=== PATIENT | female | born 1990 | race Two or more races ===

== ENCOUNTER → 2020-10-24 11:09 | Outpatient (CLI) | payer OTHER | END | disposition home or self-care (01) | LOC: PPH VACUNA 11:09 | DX: Z23 Encounter for immunization (principal) ==

== ENCOUNTER 2024-06-05 16:14 | Emergency (ER) | payer OTHER ==
[~2024-06-05] VITALS: Ht 152.4 cm; Wt 74.4 kg
[~2024-06-05 16:14] MED LIST: IMURAN50 MG; PEPCID AC20 MG
== END 2024-06-05 17:58 | disposition home or self-care (01) ==
LOC: ER 16:16
DX: S81.811A Laceration without foreign body, right lower leg, initial encounter (principal); X58.XXXA Exposure to other specified factors, initial encounter; Y93.89 Activity, other specified; Y92.89 Other specified places as the place of occurrence of the external cause; Y99.8 Other external cause status

== ENCOUNTER 2024-06-10 13:11 | Emergency (ER) | payer OTHER ==
[~2024-06-10] VITALS: Ht 152.4 cm; Wt 76.2 kg
[2024-06-10] MEDS ORDERED: CEFTRIAXONE SODIUM 1,000 MG VIAL IV ONE (16:30)
[2024-06-10] MEDS ORDERED: ACETAMINOPHEN 500 MG GEL..CAP PO ONE (16:30)
[2024-06-10 17:02] LABS: HEMATOCRIT 43.4 % (36.0-45.00); HEMOGLOBIN 14.5 g/dL (12.0-15.00); MEAN CELL VOLUME 85.3 fL (80.00-100.00); MEAN CORPUSCULAR HEMOGLOBIN 28.6 pg (27.00-32.0); MEAN CORPUSCULAR HGB CONC 33.5 g/dl (32.0-36.0); PLATELET COUNT 277 K/uL (150-450); RED BLOOD COUNT 5.09 M/uL (4.00-6.00); RED CELL DISTRIBUTION WIDTH 12.7 % (11.5-14.5)
[2024-06-10] MEDS ORDERED: AMOX-CLAV 875-1 EAC1 PO (19:18)
== END 2024-06-10 19:43 | disposition home or self-care (01) ==
LOC: ER 13:13
PROVIDERS: Nurse Practitioner Family
DX: S80.811A Abrasion, right lower leg, initial encounter (principal); W19.XXXA Unspecified fall, initial encounter; Y93.89 Activity, other specified; Y92.89 Other specified places as the place of occurrence of the external cause; Y99.8 Other external cause status; S00.93XA Contusion of unspecified part of head, initial encounter; L08.9 Local infection of the skin and subcutaneous tissue, unspecified; Z88.6 Allergy status to analgesic agent

== ENCOUNTER 2024-10-20 11:14 | Emergency (ER) | payer OTHER ==
[~2024-10-20] VITALS: Ht 152.4 cm; Wt 73.9 kg
[~2024-10-20 11:14] MED LIST changes: +AMOX-CLAV 875-1 EAC1 PO
[2024-10-20] MEDS ORDERED: MORPHINE SULFATE 2 MG/ML SYRINGE IV STA (12:19)
[2024-10-20] MEDS ORDERED: PROMETHAZINE HCL 50 MG/ML AMPUL IM STA (12:20)
[2024-10-20] MEDS ORDERED: RINGERS SOLUTION,LACTATED 1,000 ML IV STA (12:24)
[2024-10-20] MEDS ORDERED: PROMETHAZINE HCL 25 MG/ML AMPUL ONE (12:26)
[2024-10-20 12:41] LABS: HEMATOCRIT 43.1 % (36.0-45.00); HEMOGLOBIN 14.7 g/dL (12.0-15.00); MEAN CELL VOLUME 84.6 fL (80.00-100.00); MEAN CORPUSCULAR HEMOGLOBIN 28.8 pg (27.00-32.0); MEAN CORPUSCULAR HGB CONC 34.1 g/dl (32.0-36.0); PLATELET COUNT 270 K/uL (150-450); RED CELL DISTRIBUTION WIDTH 12.7 % (11.5-14.5)
[2024-10-20 13:04] LABS: ALBUMIN 3.7 gm/dL (3.4-5.0); BILIRUBIN TOTAL 0.93 mg/dL (0.3-1.2); BILIRUBIN,CONJUGATED 0.25 mg/dL (0.0-0.2); BILIRUBIN,UNCONJUGATED 0.68 mg/dL (0.0-0.6); CREATININE SERUM 0.79 mg/dL (0.55-1.02); GFR 82.35; POTASSIUM 3.9 mEq/L (3.5-5.1)
[2024-10-20 13:20] LABS: URINE APPEARANCE Cloudy; URINE BILIRRUBIN Negative (NEGATIVE); URINE BLOOD Negative; URINE COLOR Yellow; URINE GLUCOSE Negative (NEGATIVE); URINE LEUKOCYTE Trace; URINE NITRATE Positive; URINE PROTEIN Negative (NEGATIVE)
[2024-10-20 13:21] LABS: URINE EPITHELIAL CELLS 86.5 uL (0.0-38.8); URINE RBC 3.9 uL (0.0-20.8); URINE WBC 52.3 uL (0.0-23.2)
[2024-10-20 13:29] LABS: URINE BACTERIA > 9821.5 uL (0.0-1933); URINE KETONE 40 (NEGATIVE)
== END 2024-10-20 17:20 | disposition home or self-care (01) ==
LOC: ER 11:15
PROVIDERS: General Practice
DX: R10.9 Unspecified abdominal pain (principal); Z88.6 Allergy status to analgesic agent; K50.90 Crohn's disease, unspecified, without complications; K57.30 Diverticulosis of large intestine without perforation or abscess without bleeding

== ENCOUNTER 2024-12-05 09:41 | Emergency (ER) | payer OTHER ==
[~2024-12-05] VITALS: Ht 154.9 cm; Wt 72.6 kg
[2024-12-05 12:49] LABS: COVID-19 AG NEGATIVE (NEGATIVE); INFLUENZA A AG NEGATIVE (NEGATIVE)
[2024-12-05 12:54] LABS: HEMATOCRIT 44.7 % (34.1-44.9); MEAN CORPUSCULAR HEMOGLOBIN 27.9 pg (25.6-32.2); RED BLOOD COUNT 5.37 M/uL (3.93-5.22); RED CELL DISTRIBUTION WIDTH 12.6 % (11.6-14.4)
[2024-12-05 12:55] LABS: BASO % 0.8 % (0.1-1.2); EOS # 0.07 (0.04-0.54); EOS % 0.7 % (0.7-7.0); LYMPH # 1.93 (1.18-3.74); LYMPH % 19.9 % (19.3-53.1); MONO # 1.27 (0.24-0.82); MONO % 13.1 % (4.7-12.5); NEUT # 6.31 (1.56-6.13); NEUT % 65.2 % (34.0-71.1); PLATELET COUNT 309 K/uL (163-369)
[2024-12-05 13:07] LABS: CALCIUM 8.8 mg/dL (8.5-10.1); CREATININE SERUM 0.85 mg/dL (0.55-1.02); GFR 75.68; POTASSIUM 4.19 mEq/L (3.5-5.1)
== END 2024-12-05 15:09 | disposition home or self-care (01) ==
LOC: ER 09:49
PROVIDERS: General Practice
DX: B34.9 Viral infection, unspecified (principal); Z20.822 Contact with and (suspected) exposure to COVID-19; Z88.6 Allergy status to analgesic agent

== ENCOUNTER → 2025-06-16 | Emergency (ER) | payer OTHER ==
[~2025-06-16] VITALS: Ht 152.4 cm; Wt 74.8 kg
[~2025-06-16] MED LIST changes: +BUDESONIDE 0.5 MG/2 ML AMPUL.NEB IH ONE; +INFLIXIMAB100 MG
== END | disposition left against medical advice (07) ==
LOC: ER 16:35
DX: R06.02 Shortness of breath (principal); Z88.6 Allergy status to analgesic agent